=== PATIENT | male | born 1955 | race Caucasian/White ===

== ENCOUNTER 2020-09-27 16:23 | Emergency (ER) | payer MEDICAID, MEDICARE, OTHER ==
[~2020-09-27] VITALS: Ht 172.7 cm; Wt 175.0 kg
[~2020-09-27 16:23] MED LIST: ASPI-1265 CORPAK; FLO0.4C PO; INSU100I12 SQ; INSU100V36 SQ; REGULAR INSULIN
[2020-09-27] MEDS ORDERED: iohexol 350MG/ML 100ml bottle IV ONE (16:40)
--- NOTE | 2020-09-27 16:47 | NUR ---
IV initiated and pt taken to CT.
--- NOTE | 2020-09-27 16:51 | NUR ---
Pt at CT, stroke RN Doris currently in room 17 speaking with pts ex- whom brought pt in while pt at CT.
[2020-09-27] MEDS ORDERED: tranexamic acid 100mg/ml inj. IV ONE (16:55)
[2020-09-27 16:58] LABS: BASOPHILS % (AUTO) 0.4 % (0-1); EOSINOPHILS % (AUTO) 0.1 % (0-6); HEMATOCRIT 41.4 % (42.0-52.0); HEMOGLOBIN 13.6 g/dl (14.0-17.9); LYMPHOCYTES # (AUTO) 0.6 X10'3 (1.1-4.8); LYMPHOCYTES % (AUTO) 8.5 % (21-51); MEAN CORPUSCULAR HEMOGLOBIN 29.3 PG (27.0-31.0); MEAN CORPUSCULAR HGB CONC 32.8 g/dL (33.0-36.5); MEAN CORPUSCULAR VOLUME 89.5 FL (78-98); MEAN PLATELET VOLUME 9.8 FL (7.4-10.4); MONOCYTES # (AUTO) 0.3 X10'3 (0-0.9); MONOCYTES % (AUTO) 3.6 % (2-12); NEUTROPHILS # (AUTO) 6.6 X10'3 (1.8-7.7); NEUTROPHILS % (AUTO) 87.4 % (42-75); PLATELET COUNT 164 X10'3 (140-440); RED BLOOD COUNT 4.63 X10'6 (4.70-6.10); WHITE BLOOD COUNT 7.6 X10'3 (4.5-11.0)
[2020-09-27] MEDS ORDERED: TRANEXAMIC ACID 1 GM IN NACL,ISO-OS 100 ML IV ONE (17:00)
[2020-09-27] MEDS ORDERED: hydrALAZINE 20mg/ml inj. IV ONE (17:00)
--- NOTE | 2020-09-27 17:00 | NUR ---
Pt brought back from CT to room 17. Pt now being placed into gurney and to placed in main ED room.
--- NOTE | 2020-09-27 17:05 | NUR ---
Pt placed in room 14.
[2020-09-27 17:08] LABS: PARTIAL THROMBOPLASTIN TIME 26 SECONDS (22-32)
[2020-09-27 17:10] LABS: ALANINE AMINOTRANSFERASE 19 U/L (12-78); ALBUMIN 3.8 G/DL (3.4-5.0); ALKALINE PHOSPHATASE 72 IU/L (46-116); ANION GAP 15 (8-16); ASPARTATE AMINO TRANSFERASE 18 U/L (10-37); BILIRUBIN,TOTAL 0.4 MG/DL (0.1-1.0); BLOOD UREA NITROGEN 47 MG/DL (7-18); BUN/CREATININE RATIO 13.7 (5.4-32.0); CALCIUM 9.1 MG/DL (8.5-10.1); CHLORIDE 103 MMOL/L (99-107); CREATININE 3.42 MG/DL (0.60-1.10); GLUCOSE 217 MG/DL (70-104); POTASSIUM 4.1 MMOL/L (3.5-5.1); SODIUM 140 MMOL/L (135-145); TOTAL CARBON DIOXIDE 22.3 MMOL/L (24-32); TOTAL PROTEIN 7.7 G/DL (6.4-8.2); eGFR 18 ML/MIN
--- NOTE | 2020-09-27 17:10 | NUR ---
Pt arrives in room 14 with Adelia, RN and Doris Stroke RN. Stroke RN assessing patient.
[2020-09-27] MEDS ORDERED: niCARDipine-NS 40mg/200ml IVPB 200 ML IV PRN (17:15)
--- NOTE | 2020-09-27 17:15 | NUR ---
Pt has brain bleed and have emergency transfer to [facility]. Stroke RN to accompany Pt.
--- NOTE | 2020-09-27 17:25 | NUR ---
In at bedside with Doris Stroke RN. Clothing removed, Blankets applied. Pt began to vomit. Dr Chang notified with orders for 4mg Zofran IV. Medications administered. Doris initiated Nicardipine gtt with parameters to keep BP Systolic less than 140. EMS in at bedside for transport to [facility] ED. Doris to accompany pt. All belongings with family at bedside. Minimal contact time due to necessity of immediate transfer. Report called to Carly Tolentino RN.
--- NOTE | 2020-09-27 17:30 | NUR ---
EMS ready for transport, Stroke RN remains at bedside. Report called to [facility] by prosecuting attorney. Minimal charting due to emergent transfer.
--- NOTE | 2020-09-27 17:30 | NUR ---
pt vomiting, b/p 219/100 Nicardipine increase to 8.5mg 219/100 nihss 19 [facility].
[2020-09-27] MEDS ORDERED: ondansetron/PF 4mg/2ml inj ONE (17:31)
[2020-09-27] MEDS ORDERED: ondansetron/PF 4mg/2ml inj IV ONE (17:35)
[2020-09-27 17:40] VITALS: BP 154/77
--- NOTE | 2020-09-27 17:40 | NUR ---
EMS arrive and ready to transport. b/p now 154/77, will accompany pt to [facility] to monitor drip and b/p. arrive to [facility] [id number] condition unchanged.
--- NOTE | 2020-09-27 17:50 | NUR ---
Checking on level 2 stroke alert, pt returning from CT. In WC, unable to hold self upright. left side flaccid. b/p obtained 167/99. contacted charge nurse to obtain phillip and nolvia. Report from radiology that this is a bleed. will monitor b/p q 15min. Dr. Chang aware. ex at bedside aware of plan of care Addendum: 09/27/20 at 1832 by SLEE time should be 1650
--- NOTE | 2020-09-27 18:34 | NUR ---
1630 continue to monitor b/p q 15min increasing nicardapine to 7.5mg for 184/86 1645 bp 150/77
== END 2020-09-27 17:40 | disposition short-term general hospital (02) ==
LOC: ER 16:24
DX: R47.01 Aphasia (principal); I61.9 Nontraumatic intracerebral hemorrhage, unspecified; Z20.822 Contact with and (suspected) exposure to COVID-19; G81.90 Hemiplegia, unspecified affecting unspecified side; E11.22 Type 2 diabetes mellitus with diabetic chronic kidney disease; N18.9 Chronic kidney disease, unspecified; Z87.01 Personal history of pneumonia (recurrent); Z72.89 Other problems related to lifestyle; Z79.82 Long term (current) use of aspirin; Z79.4 Long term (current) use of insulin; Z79.899 Other long term (current) drug therapy
CPT/HCPCS: 36415; 70450; 71045; 80053; 85025; 85610; 85730; 86885; 86900; 86901; 87635; 93005; 96374; 99285; C9803; J0360; J2405; Q9967